=== PATIENT | female | born 1960 | race Caucasian/White ===

== ENCOUNTER 2018-08-04 09:07 | Day surgery (SDC) | payer OTHER ==
[~2018-08-04 09:07] MED LIST: DEXAMETHASONE SODIUM PHOSPHATE 10 MG/ML VIAL ONE; DEXMEDETOMIDINE HCL 200 MCG/2 ML VIAL IV ONE; ENOXAPARIN SODIUM 40 MG/0.4 ML DISP.SYRIN SQ ONE; GLYCOPYRROLATE 0.2 MG/1 ML 1 ML ONE; HYDROmorphone HCL/PF 1 MG/ML VIAL ONE; LACTATED RINGERS 1,000 ML IV.SOLN IV ONE; LIDOCAINE HCL 2% PF 100MG/5ML VIAL IJ ONE; MIDAZOLAM HCL 2 MG/2 ML VIAL ONE; ONDANSETRON HCL/PF 4 MG/ 2ML VIAL ONE; PHENYLEPHRINE HCL 10 MG/1 ML ONE; PROPOFOL 200 MG/20 ML VIAL IV ONE; ROCURONIUM BROMIDE 10 MG/ML 5ML VIAL ONE; SEVOFLURANE 250 ML LIQUID IH ONE; ceFAZolin SODIUM 1 GM VIAL ONE
[2018-08-04] MEDS ORDERED: HYDROmorphone HCL/PF 1 MG/ML VIAL ONE (13:27)
--- NOTE | 2018-08-18 11:04 | Operative Note ---
PREOPERATIVE DIAGNOSIS: 1. Morbid obesity. 2. Arthritis. 3. Hyperlipidemia. 4. Hypertension. POSTOPERATIVE DIAGNOSIS: 1. Morbid obesity. 2. Arthritis. 3. Hyperlipidemia. 4. Hypertension. PROCEDURES PERFORMED: 1. Laparoscopic vertical sleeve gastrectomy. 2. Upper gastrointestinal endoscopy. SURGEON: Marcos Lund M.D. INDICATIONS FOR PROCEDURE: Ms. Baltazar is a 57-year-old female who presented with features of morbid obesity. She was noted to have a weight of 262 pounds with a BMI of 49.5 with the above-listed comorbidities. The patient was advised laparoscopic vertical sleeve gastrectomy and possible hiatal hernia repair. The patient showed understanding and agreed to proceed. DESCRIPTION OF PROCEDURE: After explaining to the patient in detail and informed consent was obtained, the patient was identified in the preoperative holding area. The patient was transferred to the operating room and was placed in supine position. Sequential compressive devices were placed for DVT prophylaxis. Preoperative antibiotics were given. After induction of anesthesia, the abdomen was prepped and draped in a sterile fashion. Through a left upper quadrant 1-cm incision, and using Optiview technique, the peritoneal cavity was entered and pneumoperitoneum was created. Thereafter, under direct vision, another 5-mm trocar was placed in the left midabdomen and another 15-mm trocar was placed in the right midabdomen. Through a 1-cm incision in the right subcostal region, another 5-mm trocar was placed. Through a 1-cm incision in the epigastrium, a Kyra retractor was introduced and the left lobe of the liver was retracted. On initial inspection, the patient was noted to have no evidence of hiatal hernia. I took down the gastroepiploic vessels using a LigaSure. This was continued superiorly. The short gastric vessels were taken down. The gastrophrenic ligament was divided and the Angle of His was mobilized. The posterior attachments of the stomach on the pancreas were released. Distally, the gastroepiploic vessels were taken down up to about 4 cm proximal to the pylorus. At this point, a #38 [place] Bougie was introduced into the stomach and was placed along the lesser curve. The stomach was then divided in a vertical fashion with multiple Endo ALEXANDREA [employer] Black Load Staplers. The first firing was directed outwards towards the greater curvature. Subsequent firings were directed towards the Angle of His to create a loose sleeve around the #38 [place] bougie. The bougie was then removed and an upper GI endoscopy was performed at this point. The scope was introduced into the esophagus and was gradually advanced into the stomach. The GE junction appeared normal. The sleeve size appeared normal. No evidence of any active bleeding was noted. The stomach was insufflated with air and irrigation of fluid along the staple line revealed no evidence of air leak. The stomach was then suctioned out and the scope was removed. Absolute hemostasis was ensured. Thorough saline irrigation was given. The Kyra retractor was removed. Approximately 10 mL of a lidocaine- Marcaine mix was instilled under the left hemidiaphragm. The sleeve gastrectomy specimen was removed. The abdomen was then deflated. The incisions were closed with 4-0 Monocryl. Dermabond was applied. Approximately 10 mL of a lidocaine- Marcaine mix was injected into all the incisions. The patient was awakened from anesthesia and was transferred to the recovery room in stable condition. The patient was also noted to have features of a micronodular liver at the time of surgery. ESTIMATED BLOOD LOSS: Approximately 25 mL. CONDITION OF THE PATIENT: Stable. FLUIDS GIVEN: Per Anesthesia note. SPECIMEN(S) SENT: Sleeve gastrectomy specimen. COMPLICATIONS: None. ANESTHESIA: General. Marcos Lund M.D. ABEBE/jillian (Please copy [facility] provider when applicable) Job #[id number] KRISTINE
== END 2018-08-04 14:31 | disposition other institution (70) ==
LOC: OPSURG 09:07
PROVIDERS: ATTEND Surgery
DX: E66.01 Morbid (severe) obesity due to excess calories (principal); K76.89 Other specified diseases of liver; I10 Essential (primary) hypertension; E78.5 Hyperlipidemia, unspecified; M19.90 Unspecified osteoarthritis, unspecified site; Z68.42 Body mass index [BMI] 45.0-49.9, adult
CPT/HCPCS: 43235; 43775; 88305; J0690; J1170; J1650; J2001; J2250; J2370; J2405; J2704; J3490; J7120

== ENCOUNTER 2018-08-04 14:32 | Inpatient (IN) | payer OTHER ==
--- NOTE | 2018-08-04 14:43 | History and Physical Report ---
History of Present Illnes - History of Present Illness Reason for Visit: S/P LSG History of Present Illness: Patient is a 57-year-old female who has tried multiple diets and exercise programs with no success. She has always struggled with her weight. She has tried many diet plans, diet pills, and exercise plans but has not been able to keep it off. Patient and surgeon decided to proceed with gastric sleeve procedure. Procedure went well- She will be admitted and monitored s/p surgical intervention. Patient has been on a liquid diet prior to surgery so she is a risk of dehydration s/p surgery. She will be admitted for IV hydration to help hydrate patient until she is able to tolerate a sufficient oral intake, will treat pain with IV medication until patient is able to tolerate oral meds, IV antiemetics to help reduce episodes of nausea and/or vomiting. Patient will be monitored closely using telemetry due to cardiac history of HTN, CAD, and stents. - Past Medical History Cardiac: CAD (Stents x 2), HTN, Hyperlipidemia Hepatobiliary: Other (Fatty Liver) Musculoskeletal: Chronic low back pain, Osteoarthritis (Knees) Dermatology: Psoriasis Grav: 3 Para: 2 Ab: 1 - Past Surgical History Past Surgical History: Hysterectomy, Other (Bilateral Knee Replacement), Tonsillectomy - Past Family History Mother Family History: Cancer, Hyperlipidemia Father Family History: CAD, Hypertension - Past Social History Smoke: No Alcohol: Rare Drugs: None Lives: With Family Domestic Violence: Negative - Health Maintenance Health Maintenance: Cholesterol, Mammogram Influenza Vaccine: No Pneumonia Vaccine: No Resuscitation Status: Full code - Unable to Obtain History Unable to Obtain: No Review of Systems - Review of Systems Constitutional: negative: Fever, Chills Eyes: negative: vision change ENT: negative: Throat Pain Respiratory: SOB with Excertion Cardiovascular: Other (EF 57%). negative: Chest Pain, Light Headedness Gastrointestinal: Nausea, Vomiting, Abdominal Pain Genitourinary: negative: Dysuria Musculoskeletal: Back Pain Skin: negative: Rash Neurological: Weakness - Medications/Allergies Allergies/Adverse Reactions: Allergies Allergy/AdvReac Type Severity Reaction Status Date / Time No Known Allergies Allergy Unverified 08/04/18 14:38 Home Medications: Home Medications Celecoxib 200 mg PO DAILY 08/04/18 Hydrocodone/Acetaminophen [Hydrocodone-Acetamin 7.5-325] 1 tab PO BID PRN 08/04/18 Isosorbide Mononitrate [Imdur] 30 mg PO DAILY 08/04/18 Methotrexate Sodium [Rheumatrex] 3 tab PO WEEK 08/04/18 Pravastatin Sodium [Pravachol] 40 mg PO DAILY 08/04/18 Trazodone HCl 25 mg PO HS 08/04/18 Exam - Exam General: Alert, Oriented to Person, Oriented to Place, Oriented to Time, Cooperative, Mild distress, Morbidly Obese HEENT: Atraumatic, PERRLA, Nose Mucous membr. moist/[place] Neck: Normal Range of Motion Carotids: NO BRUIT Lungs: Clear to auscultation, Normal air movement Cardiovascular: Regular rate, Normal S1, Normal S2, Other (POCKET TELEMETRY) Peripheral Edema: NONE Peripheral Pulses: 2+ Abdomen: Soft, Decreased Bowel Sounds Integumentary: Warm, Dry, Pale, Other (INCISIONS ARE WITHOUT REDNESS/ERYTHEMA- DERMABOND INTACT) Extremities: Normal pulses, No tenderness/swelling Neurological: Normal gait, Strength Equal Bilat, Sensation intact Psych/Mental Status: Mental status NL, Mood NL, Appropriate Affect, Intact Judgment Assessment/Plan - Assessment/Plan (1) S/P gastric surgery Status: Acute Plan: Plan to admit for IV hydration, IV pain meds, and IV antiemetics. Lovenox and SCDs to help prevent DVTs, IS and frequent ambulation will be implemented. Start ice chips and advance diet as tolerated. Will check blood pressures frequently (2) Morbid obesity due to excess calories Status: Acute Plan: Patient is s/p gastric sleeve. We will assist patient with implementing gastric sleeve diet protocol starting with ice chips and clear liquids and advancing as tolerated. (3) Hypertension Status: Acute Qualifiers: Hypertension type: essential hypertension Qualified Code(s): I10 - Essential (primary) hypertension Plan: Will monitor blood pressures closely and implement medication as needed (4) Nausea and vomiting Status: Acute Plan: Will implement IV anti-emetics for nausea and vomiting- will continue with IVF for IV hydration (5) Osteoarth NOS-other site Status: Acute Plan: Patient was to stop methotrexate one week before surgery- she will touch base with PCP when to restart VTE Assessment - RISK FACTOR SCORE VTE RISK FACTOR SCORES: AGE 40-60 YEARS, OBESITY, MAJOR SURGERY/ANESTHESIA TIME > 1 HOUR - RISK VTE HIGH RISK: SCORE OF 3-4 (RISK PROXIMAL DVT 4-8%) PROPHYLAXIS NEEDED (Will give lovenox daily, SCDs while in bed, frequent ambulation, Incentive spirometer)
[2018-08-04] MEDS ORDERED: ONDANSETRON HCL/PF 4 MG/ 2ML VIAL IVP PRN (14:57)
[2018-08-04] MEDS ORDERED: IPRATROPIUM/ALBUTEROL SULFATE 3 ML AMPUL.NEB NEB PRN (14:57)
[2018-08-04] MEDS ORDERED: PROMETHAZINE HCL 25 MG in 0.9 % SODIUM CHLORIDE 50 ML IV PRN (14:57)
[2018-08-04] MEDS ORDERED: MORPHINE SULFATE 4 MG/ML VIAL IVP PRN (14:57)
[2018-08-04 15:04] VITALS: BMI 47.0
[2018-08-04] MEDS: 0.9 % SODIUM CHLORIDE 1,000 ML IV SCH ×2 (15:08→22:22)
[2018-08-04] MEDS: FAMOTIDINE 20 MG/2 ML VIAL IVP SCH (20:54)
[2018-08-04] MEDS: ceFAZolin SODIUM 1 GM/50 ML PIGGYBACK IV SCH (20:54)
[2018-08-04] MEDS: ACETAMINOPHEN 1,000 MG/100 ML INJ IV PRN (21:07)
[2018-08-04] MEDS: HYDROcodone-ACETAMIN 7.5-325/15ML SOLN UD CUP PO PRN (23:21)
[2018-08-05] MEDS: ceFAZolin SODIUM 1 GM/50 ML PIGGYBACK IV SCH (04:30)
--- NOTE | 2018-08-05 06:30 | Inpatient Progress Note ---
Subjective - Required Recertification Statement I anticipate X number of days because-include discharge plan: 1 - Review of Systems Events since last encounter: Patient states that she had a decent night. She had some nausea and dry heaves. She was given Zofran and Phenergan. She was encouraged to sip her drinks and wait in between drinks- she states that her pain is tolerable and pain medications are working. She has been up walking in the hightower with encouragement from nursing, wearing SCDs while in bed, and using Incentive Spirometry with encouragement by nursing- incision sites are dry and intact with dermabond. General: Denies: Chills HEENT: Denies: Dysphasia Pulmonary: Denies: Dyspnea, Pleuritic Chest Pain Cardiovascular: Denies: Chest Pain, Light Headedness Gastrointestinal: Nausea, Vomiting, Abdominal Pain Genitourinary: Denies: Dysuria Musculoskeletal: Denies: Back Pain Neurological: Denies: Weakness Objective - Exam Vitals and I&O: Vital Signs Temp 99.0 F 08/05/18 05:44 Pulse 85 08/05/18 06:00 Resp 18 08/05/18 05:44 BP 159/92 08/05/18 05:44 Pulse Ox 97 08/05/18 06:00 Intake & Output 08/04/18 08/04/18 08/05/18 11:59 23:59 11:59 Intake Total 1740 1999 Output Total 300 1475 Balance 1440 525 Weight 116.573 kg Intake: IV 1500 2000 left hand 1500 2000 Oral 240 Output: Urine 300 1475 Other: Voiding Method Toilet # Voids 1 General: Alert, Oriented to Person, Oriented to Place, Oriented to Time, Cooperative, Mild distress, Morbidly Obese HEENT: Atraumatic, PERRLA, Nose Mucous membr. moist/[place] Neck: Supple, +2 carotid pulse wo bruit Lungs: Clear to auscultation, Normal air movement, Speaks full Sentences Cardiovascular: Regular rate, Normal S1, Normal S2 Abdomen: Soft, Decreased Bowel Sounds Extremities: Normal pulses, No tenderness/swelling Skin: [place], Warm, Dry, Other (Incision x 5 without redness/erythema- dermabond intact) Neurological: Normal gait, Normal speech, Strength Equal Bilat, Sensation intact Psych/Mental Status: Mental status NL, Mood NL, Appropriate Affect, Intact J udgment Assessment/Plan - Assessment/Plan (1) S/P gastric surgery Status: Acute Assessment: Patient experiencing nausea and vomiting- has been ambulating, wearing SCDs while in bed, using incentive spirometry, patient receiving lovenox to prevent DVT Plan: Patient getting IV fluids for hydration, IV pain meds, and IV antiemetics. Lovenox and SCDs to help prevent DVTs, IS and frequent ambulation will be implemented. Patient eating ice chips and will advance diet as tolerated once nausea and vomiting is controlled. (2) Morbid obesity due to excess calories Status: Acute Assessment: Patient working on ice chips- will advance to clear liquids as tolerated Plan: Will start with ice chips and advance to clear liquids once N/V controlled (3) Hypertension Status: Acute Qualifiers: Hypertension type: essential hypertension Qualified Code(s): I10 - Essential (primary) hypertension Assessment: Blood pressures are stable Plan: Will continue with home meds once patient is able to tolerate PO (4) Nausea and vomiting Status: Acute Assessment: patient having nausea and dry heaves Plan: Patient continues to receive IV antiemetic and IVF (5) Osteoarth NOS-other site Status: Acute Assessment: Stable Plan: Continue to monitor- encourage ambulation
[2018-08-05] MEDS: ACETAMINOPHEN 1,000 MG/100 ML INJ IV PRN ×2 (06:35→20:00)
[2018-08-05 06:46] LABS: eGFR (Non-African) > 60
[2018-08-05 06:47] LABS: BASOPHILS % 0.5 % (0.0-1.5)
[2018-08-05] MEDS: FAMOTIDINE 20 MG/2 ML VIAL IVP SCH ×2 (09:23→20:45)
[2018-08-05] MEDS: ENOXAPARIN SODIUM 40 MG/0.4 ML DISP.SYRIN SQ SCH (09:28)
[2018-08-05] MEDS: 0.9 % SODIUM CHLORIDE 1,000 ML IV SCH ×3 (11:19→16:12)
[2018-08-05] MEDS: HYDROcodone-ACETAMIN 7.5-325/15ML SOLN UD CUP PO PRN (13:06)
[2018-08-05] MEDS ORDERED: KETOROLAC TROMETHAMINE 30 MG/1ML VIAL IV PRN (14:57)
--- NOTE | 2018-08-06 06:27 | Discharge Summary ---
Discharge Summary - Discharge [facility] Admission Date: 08/04/18 Discharge Date: 08/06/18 History of Present Illness: Patient is a 57-year-old female who has tried multiple diets and exercise programs with no success. She has always struggled with her weight. She has tried many diet plans, diet pills, and exercise plans but has not been able to keep it off. Patient and surgeon decided to proceed with gastric sleeve procedure. Procedure went well- She will be admitted and monitored s/p surgical intervention. Patient has been on a liquid diet prior to surgery so she is a risk of dehydration s/p surgery. She will be admitted for IV hydration to help hydrate patient until she is able to tolerate a sufficient oral intake, will treat pain with IV medication until patient is able to tolerate oral meds, IV antiemetics to help reduce episodes of nausea and/or vomiting. Patient will be monitored closely using telemetry due to cardiac history of HTN, CAD, and stents. Home Medications: Ambulatory Orders Medication Instructions Recorded Celecoxib 200 mg PO DAILY 08/04/18 Hydrocodone/Acetaminophen 1 tab PO BID PRN 08/04/18 [Hydrocodone-Acetamin 7.5-325] Isosorbide Mononitrate [Imdur] 30 mg PO DAILY 08/04/18 Methotrexate Sodium [Rheumatrex] 3 tab PO WEEK 08/04/18 Pravastatin Sodium [Pravachol] 40 mg PO DAILY 08/04/18 Trazodone HCl 25 mg PO HS 08/04/18 Consultations this Visit: None Procedures this Visit: Other (S/P LSG) Allergies/Adverse Reactions: Allergies Allergy/AdvReac Type Severity Reaction Status Date / Time No Known Allergies Allergy Unverified 08/04/18 14:38 Discharge Summary: Patient is a 57-year-old female that underwent the gastric sleeve procedure. She had some issues with nausea and dry heaves but has done very well. She has been very cooperative with her care by ambulating frequently, using her incentive spirometer, and wearing her SCDs while in bed. She has been compliant with her diet during hospitalization. She is having minimal discomfort at this time and minimal nausea- she has been passing gas and belching. She is aware of discharge instructions and what she can and cannot do post surgical- she is aware of the strict diet she must follow to decrease discomfort and have success after procedure. She has family support and family will be taking her home- medications written by surgeon given to patient. She feels ready to go home. Hospital Course: Patient received pain medications, antiemetics, and IVF and was transitioned to oral. She has been up ambulating and using incentive spirometer. - Final Diagnosis (1) S/P gastric surgery Problems: Incision without redness or drainage, positive bowel sounds, minimal discomfort, belching and flatus, no extremity pain or edema, LCTA Right or Left: Right (2) Morbid obesity due to excess calories Problems: Continue with bariatric sleeve diet- clear liquids today and start full liquids tomorrow; protein shake 80-100 grams protein Right or Left: Right (3) Hypertension Problems: Stable- monitor blood pressures daily- keep log and take to follow up appointment Right or Left: Right (4) Nausea and vomiting Problems: STABLE- SCRIPT SENT HOME FOR PHENERGAN Right or Left: Right (5) Osteoarth NOS-other site Problems: STABLE- CONTINUE WITH HOME MEDS. Right or Left: Right
[2018-08-06] MEDS: FAMOTIDINE 20 MG/2 ML VIAL IVP SCH (08:14)
[2018-08-06] MEDS: ENOXAPARIN SODIUM 40 MG/0.4 ML DISP.SYRIN SQ SCH (08:14)
[2018-08-06 08:24] VITALS: BP 170/88
== END 2018-08-06 08:21 | disposition home or self-care (01) | DRG 621 ==
LOC: SOUTH 14:32
PROVIDERS: ADMIT Nurse Practitioner Family; ATTEND Nurse Practitioner Family
PROC: 0DB64Z3 Excision of Stomach, Percutaneous Endoscopic Approach, Vertical (ICD-10-PCS; principal; 2018-08-04)
DX: E66.01 Morbid (severe) obesity due to excess calories (principal); I11.9 Hypertensive heart disease without heart failure; M15.9 Polyosteoarthritis, unspecified; M51.26 Other intervertebral disc displacement, lumbar region; I25.10 Atherosclerotic heart disease of native coronary artery without angina pectoris; K76.0 Fatty (change of) liver, not elsewhere classified; G89.29 Other chronic pain; L40.9 Psoriasis, unspecified; E78.00 Pure hypercholesterolemia, unspecified; R11.2 Nausea with vomiting, unspecified; Z68.42 Body mass index [BMI] 45.0-49.9, adult; Z90.710 Acquired absence of both cervix and uterus; Z95.5 Presence of coronary angioplasty implant and graft; Z96.653 Presence of artificial knee joint, bilateral; Z80.3 Family history of malignant neoplasm of breast; Z80.0 Family history of malignant neoplasm of digestive organs; Z82.49 Family history of ischemic heart disease and other diseases of the circulatory system; Z79.899 Other long term (current) drug therapy
CPT/HCPCS: 80053; 85025; 97116; 97161; 97165; 97530; A9270; J1650; J2405; J2550; J7030; S1016